=== PATIENT | female | born 1975 | race African-American/Black ===

== ENCOUNTER 2017-02-02 14:26 | Inpatient (IN) | payer OTHER ==
[2017-02-02 16:12] VITALS: BMI 23.2
--- NOTE | 2017-02-02 17:07 | HP ---
Admission ROS [facility] - [facility] Chief Complaint: I WANT TO GO TO REHAB Allergies/Adverse Reactions: Allergies Allergy/AdvReac Type Severity Reaction Status Date / Time No Known Allergies Allergy Verified 02/02/17 15:12 History of Present Illness: 41 YEARS OLD FEMALE WITH LONG HISTORY OF MARIJUANA AND COCAINE AND NICOTINE DEPENDENCE HAS DIABETES AND ASTHMA, AND SEIZURE IS ADMITTED TO REHAB Exam Limitations: No Limitations - Ebola screening Have you traveled outside of the country in the last 21 days: No (N) Have you had contact with anyone from an Ebola affected area: No Have you been sick,other than usual withdrawal symptoms: No Do you have a fever: No - Review of Systems Constitutional: Weight Stable EENT: reports: No Symptoms Reported Respiratory: reports: No Symptoms reported Cardiac: reports: No Symptoms Reported GI: reports: No Symptoms Reported : reports: No Symptoms Reported Musculoskeletal: reports: No Symptoms Reported Integumentary: reports: No Symptoms Reported Neuro: reports: Seizure (UNKNOWN FIRST SEIZURE, UNKNOWN CAUSE OF SEIZURE, UNKNOWN LAST EPISODE) Endocrine: reports: No Symptoms Reported Hematology: reports: No Symptoms Reported Psychiatric: reports: Judgement Intact, Orientated x3, Depressed Other Systems: Reviewed and Negative Patient History - Patient Medical History Hx Anemia: No Hx Asthma: Yes Hx Chronic Obstructive Pulmonary Disease (COPD): No Hx Cancer: No Hx Cardiac Disorders: No Hx Congestive Heart Failure: No Hx Hypertension: No Hx Hypercholesterolemia: No Hx Pacemaker: No HX Cerebrovascular Accident: No Hx Seizures: Yes Hx Dementia: No Hx Diabetes: Yes (NIDDM) Hx Gastrointestinal Disorders: No Hx Liver Disease: No Hx Genitourinary Disorders: No Hx Sexually Transmitted Disorders: No Hx Renal Disease (ESRD): No Hx Thyroid Disease: No Hx Human Immunodeficiency Virus (HIV): No Hx Hepatitis C: No Hx Depression: No (ptsd) Hx Suicide Attempt: Yes (2015 OVER DOSE) Hx Bipolar Disorder: Yes Hx Schizophrenia: No - Patient Surgical History Past Surgical History: No Hx Neurologic Surgery: No Hx Cataract Extraction: No Hx Cardiac Surgery: No Hx Lung Surgery: No Hx Breast Surgery: No Hx Breast Biopsy: No Hx Abdominal Surgery: No Hx Appendectomy: No Hx Cholecystectomy: No Hx Genitourinary Surgery: No Hx Orthopedic Surgery: No - PPD History Previous Implant?: Yes Documented Results: Negative w/o proof Implanted On Prior R Admission?: No Date: 08/23/12 PPD to be Administered?: Yes - Reproductive History Patient is a Female of Child Bearing Age (11 -55 yrs old): Yes Last Menstrual Period: 01/02/17 Patient : No - Smoking Cessation Smoking history: Current every day smoker Have you smoked in the past 12 months: Yes Aproximately how many cigarettes per day: 1 Cigars Per Day: 0 Hx Chewing Tobacco Use: No Initiated information on smoking cessation: Yes 'Breaking Loose' booklet given: 02/02/17 - Substance & Tx. History Hx Alcohol Use: No Hx Substance Use: Yes Substance Use Type: Cocaine, Marijuana Hx Substance Use Treatment: Yes (2011) - Substances Abused Cocaine Route: Inhalation Frequency: 1-2 times per week Amount used: 20$ Age of first use: 20 Date of Last Use: 01/30/17 Family Disease History - Family Disease History Family Disease History: Other: Father (), Mother () Other Family History: ONLY CHILD Admission Physical Exam [facility] - Vital Signs Vital Signs: Vital Signs - 24 hr 02/02/17 16:03 Temperature 97.8 F Pulse Rate 99 H Respiratory 18 Rate Blood Pressure 98/56 - Physical General Appearance: Yes: No Apparent Distress, Appropriately Dressed, Thin HEENTM: Yes: Hearing grossly Normal, Normal ENT Inspection, Normocephalic, Normal Voice Respiratory: Yes: Chest Non-Tender, No Respiratory Distress, No Accessory Muscle Use, Wheezing, Inspiration Neck: Yes: Supple, Trachea in good position Breast: Yes: Breasts Symetrical Cardiology: Yes: Regular Rhythm, S1, S2, Tachycardia Abdominal: Yes: Normal Bowel Sounds, Non Tender, Soft Genitourinary: Yes: Within Normal Limits Musculoskeletal: Yes: full range of Motion, Gait Steady, Back pain Extremities: Yes: Normal Inspection, Normal Range of Motion, Non-Tender Neurological: Yes: Fully Oriented, Alert, Motor Strength 5/5, Normal Response, Depressed Affect Integumentary: Yes: Warm Lymphatic: Yes: Within Normal Limits - Diagnostic (1) Cocaine dependence, uncomplicated Current Visit: Yes Status: Chronic (2) Cannabis dependence, uncomplicated Current Visit: Yes Status: Chronic (3) Diabetes mellitus type II, controlled Current Visit: Yes Status: Chronic Qualifiers: Diabetes mellitus complication status: without complication Diabetes mellitus intermediate insulin use: without intermediate use Qualified Code(s): E11.9 - Type 2 diabetes mellitus without complications (4) Nicotine dependence Current Visit: Yes Status: Acute Qualifiers: Nicotine product type: cigarettes Substance use status: in withdrawal Qualified Code(s): F17.213 - Nicotine dependence, cigarettes, with withdrawal (5) Asthma Current Visit: Yes Status: Chronic Qualifiers: Asthma severity: moderate Asthma complication type: with status asthmaticus (6) Weight loss Current Visit: Yes Status: Acute (7) Seizure Current Visit: Yes Status: Chronic Comment: SINCE 2009 Cleared for Admission [facility] - Detox or Rehab [facility] Level of Care: Observation Bed Detox Regimen/Protocol: Not Applicable Claeared for Rehab Admission: Yes S Breath Alcohol Content Breath Alcohol Content: 0 Urine Pregancy Test - Result Urine Test Results: Negative- NO Line Present Urine Drug Screen - Control Is Test Valid: Yes - Results Drug Screen Negative: No Urine Drug Screen Results: THC-Marijuana, RAJESH-Cocaine Inpatient Rehab Admission - Initial Determination Are CD services needed?: Yes Free of communicable disease: Yes Not in need of hospitalization: Yes - Rehab Admission Criteria Previous failed treatment: Yes Poor recovery environment: Yes Comorbidities: Yes Lacks judgement: No Patient is meeting Inpatient Rehab admission criteria:: Yes
[2017-02-02] MEDS ORDERED: MAGNESIUM CITRATE 300 ML BOTTLE PO PRN (17:42)
[2017-02-02] MEDS ORDERED: ACETAMINOPHEN 325 MG TABLET (FP) PO PRN (17:42)
[2017-02-02] MEDS ORDERED: NICOTINE POLACRILEX 2 MG GUM BC PRN (17:42)
[2017-02-02] MEDS ORDERED: LOPERAMIDE HCL 2 MG CAPSULE PO PRN (17:42)
[2017-02-02] MEDS ORDERED: MENTHOL/PHENOL 1 EACH UD MM PRN (17:42)
[2017-02-02] MEDS ORDERED: guaiFENesin/D-METHORPHAN HB 10 ML UNIT-DOSE CUPS PO PRN (17:42)
[2017-02-02] MEDS ORDERED: IBUPROFEN 400 MG TABLET (FP) PO PRN (17:42)
[2017-02-02] MEDS ORDERED: MAGNESIUM HYDROX 2400MG/30ML ORAL SUSPENSION 30 ML CUP PO PRN (17:42)
[2017-02-02] MEDS ORDERED: MAG HYDROX/AL HYDROX/SIMETH 30 ML UNIT-DOSE CUP PO PRN (17:42)
[2017-02-02] MEDS ORDERED: P-EPHED 60MG/TRIPROLIDI 2.5MG TABLET PO PRN (17:42)
[2017-02-02] MEDS ORDERED: THIAMINE HCL 100 MG TABLET (FP) PO SCH (22:00)
[2017-02-02] MEDS: metFORMIN HCL 500 MG TABLET (FP) PO SCH (22:33)
[2017-02-03 06:45] VITALS: BP 99/64; PULSE 98; TEMP 98.4
[2017-02-03] MEDS: metFORMIN HCL 500 MG TABLET (FP) PO SCH ×2 (07:05→17:20)
[2017-02-03] MEDS ORDERED: PRENATAL VITAMINS W/ FOLIC ACID TABLET (FP) PO SCH (10:00)
[2017-02-03] MEDS ORDERED: NICOTINE 14 MG/24 HOURS TOPICAL PATCH TD SCH (10:00)
--- NOTE | 2017-02-03 10:19 | EKG ---
Test Reason : Blood Pressure : / mmHG Vent. Rate : 067 BPM Atrial Rate : 067 BPM P-R Int : 172 ms QRS Dur : 098 ms QT Int : 380 ms P-R-T Axes : 053 055 057 degrees QTc Int : 401 ms NORMAL SINUS RHYTHM NORMAL ECG NO PREVIOUS ECGS AVAILABLE Confirmed by LEISA ROLDAN, ROSA M ([id number]) on 02/03/2017 10:19:12 AM Referred By: Confirmed By:ROSA M DE LA FUENTE MD
[2017-02-03] MEDS ORDERED: FLU VACCINE QUAD 60 MCG/0.5 ML (MDV 17-18) IM ONE (12:00)
[2017-02-03 15:13] LABS: ALBUMIN 3.5 g/dl (3.4-5.0); ALK PHOS 67 U/L (45-117); ANION GAP 9 (8-16); BILIRUBIN,TOTAL 0.8 mg/dL (0.2-1.0); CALCIUM 9.3 mg/dL (8.5-10.1); CO2 25 mmol/L (21-32); CREATININE 0.8 mg/dL (0.55-1.02); GLUCOSE,RANDOM 110 mg/dL (74-106); SGOT/AST 19 U/L (15-37); SGPT/ALT 19 U/L (12-78); TOT PROT 6.9 g/dl (6.4-8.2)
[2017-02-03 15:49] LABS: HIV 1 & 2 AB NEGATIVE; HIV 1 AGp24 NEGATIVE
[2017-02-03 16:00] LABS: MCH 32.9 pg (25.7-33.7); MEAN CELL VOLUME 96.7 fl (80-96); MEAN PLT VOLUME 8.4 fl (7.5-11.1); PLATELET COUNT 349 K/MM3 (134-434); RDW 12.7 % (11.6-15.6); WHITE BLOOD COUNT 5.7 K/mm3 (4.0-10.0)
--- NOTE | 2017-02-03 22:39 | PN ---
[facility] Progress Note Note: received nurse call that the patient wants to go to different chemical rehabilitation facility.
== END 2017-02-03 20:10 | disposition left against medical advice (07) | DRG 770 ==
LOC: YASAS 14:26 → Y3E 19:33
PROVIDERS: ADMIT Psychiatry & Neurology Psychiatry; ATTEND Psychiatry & Neurology Psychiatry
PROC: HZ42ZZZ Group Counseling for Substance Abuse Treatment, Cognitive-Behavioral (ICD-10-PCS; principal; 2017-02-02)
DX: F14.20 Cocaine dependence, uncomplicated (principal); F12.20 Cannabis dependence, uncomplicated; F17.213 Nicotine dependence, cigarettes, with withdrawal; E11.9 Type 2 diabetes mellitus without complications; J45.909 Unspecified asthma, uncomplicated; R00.0 Tachycardia, unspecified; Z86.69 Personal history of other diseases of the nervous system and sense organs; Z87.898 Personal history of other specified conditions; Z79.84 Long term (current) use of oral hypoglycemic drugs; Z91.5 Personal history of self-harm
CPT/HCPCS: 36415; 80053; 80164; 85027; 86593; 87389; 90688; 93005; 93010